=== PATIENT | male | born 2000 | race Caucasian/White ===

== ENCOUNTER 2022-02-02 22:20 | Emergency (ER) | payer MEDICAID ==
[~2022-02-02] VITALS: Ht 167.6 cm; Wt 68.2 kg
[2022-02-02 22:39] VITALS: BP 117/93
== END 2022-02-02 23:23 | disposition left against medical advice (07) ==
LOC: ER 22:23
DX: R55 Syncope and collapse (principal); Z53.21 Procedure and treatment not carried out due to patient leaving prior to being seen by health care provider
CPT/HCPCS: 93005